=== PATIENT | female | born 1970 | race Caucasian/White ===

== ENCOUNTER 2024-06-09 10:31 | Emergency (ER) | payer BC, SELFPAY ==
--- NOTE | 2024-06-09 11:54 | ED.GENMED ---
History of Present Illness
General
Chief Complaint: Vaginal Bleeding
Source: patient
Exam Limitations: none
Time Seen by Provider: 06/09/24 11:00
Nursing documentation reviewed up to this point in time: agreed with
History of Present Illness
History of Present Illness:
Patient presents to ED secondary to blood with urination, as well as passage of small blood clots since last night. Patient denies fever or chills. Denies abdominal pain. Denies difficulty with urination. Denies trauma. Denies back pain.
Patient states that during routine health check in October 2023, her urine test microscopically had revealed small blood. When it was rechecked in May, it was still present. Denies previous history of similar symptoms. Denies recent change in
medications or diet. Denies dizziness. Denies shortness of breath. Denies weakness. Denies family history of kidney stones. Denies any urinary symptoms, i.e. urinary frequency/dysuria/urgency. Patient's last menstrual cycle was 2 years ago, as
patient is currently postmenopausal. Patient reports having received normal '[employer] exam' less than 1 year ago.
Review of Systems
Review of Systems
Allergies reviewed?: Yes
All Other Systems: ROS reviewed and negative except as documented in HPI and ROS
Constitutional: Reports no symptoms; Denies fever
Respiratory: Denies trouble breathing
Cardiac: Reports no symptoms; Denies palpitations
ABD/GI: Reports no symptoms
: Reports bleeding
Musculoskeletal: Reports no symptoms; Denies back pain
Skin: Reports no symptoms
Neurological: Reports no symptoms; Denies dizzy or weakness
Phy Exam
Physical Exam
Physical Exam:
Physical Exam
General: no apparent distress, not acutely ill. afebrile
Head: nc/at. eomi
Neck: supple. normal range of motion.
Abdomen: normal bowel sounds. not tender.
Neuro: alert and oriented. no focal neurological deficits
Skin: no rash
Psychiatric: well kept. interactive and cooperative
Extremities: no edema. no calf tenderness.
Course
Orders/Labs/Results
Orders:
Orders
06/09/24 11:21
Test Result ONCE
06/09/24 11:22
, Urine Qualitative Screen [HCG, Urine Qualitative Screen] Urgent
Date Specimen was Collected: 06/09/24
Time Specimen was Collected: 11:22
Urinalysis Reflex To Culture Urgent
Date Specimen was Collected: 06/09/24
Time Specimen was Collected: 11:22
06/09/24 13:03
US Pelvis W Transvag Combined Urgent
Comment:
Reason For Exam: vaginal bleeding
Vital Signs
Initial and Last Documented VS:
Initial Vital Signs
Temp Pulse Resp Pulse Ox
99.0 F 100 16 98
06/09/24 10:43 06/09/24 10:43 06/09/24 10:43 06/09/24 10:43
Last Documented Vital Signs
Temp Pulse Resp BP Pulse Ox
99.0 F 98 16 128/85 98
06/09/24 12:50 06/09/24 12:50 06/09/24 10:43 06/09/24 12:50 06/09/24 12:50
MDM/Problems Addressed
MDM/Problems Addressed:
Urinalysis reviewed: No blood noted. As such, likelihood of small blood clots noted, may be [employer] in origin. Pelvic ultrasound ordered.
Pelvic ultrasound report reviewed and discussed with patient and her spouse. Advised to follow-up with [employer] physician for further evaluation and treatment. However, with significant worsening bleeding and/or symptoms, i.e.
dizziness/weakness/shortness of breath, advised to return to ED for reevaluation. Patient and spouse expressed understanding, at time of discharge.
*Critical Care Note
Total Time (30-74mins, 75-104mins- exclusive of procedures): Not Applicable
ED Attending Note
-
Portions of this chart may have been created with voice recognition software.� Occasional wrong word or��sound alike� substitutions may have occurred due to the inherent limitations of voice recognition software.
Discharge Plan
Departure
Patient Disposition: Home (Routine Discharge)
Date of Disposition: 06/09/24
Time of Disposition: 14:56
Patient with high blood pressure during this ER visit?: Yes
Condition: Good
Discharge Problem:
Endometrial cyst
Referrals:
UNKNOWN - PT DOES,NOT KNOW [Family Provider] -
Activity Restrictions/Additional Instructions:
As discussed, please follow-up with [employer] physician for further evaluation and treatment. Please return to ED with worsening symptoms, i.e. excessive bleeding, dizziness, shortness of breath, weakness.
Interventions
Interventions:
*Risk Screen - Suicide Last Done: 06/09/24 11:26
*Neglect/Abuse Screening Last Done: 06/09/24 11:26
*Nursing Disposition Last Done: 06/09/24 15:29
ED-Female Genitourinary Assessment Last Done: 06/09/24 11:26
Discharge Date and Time
Discharge Date/Time: 06/09/24 15:30
Print Language: GREEK
[2024-06-09 12:00] LABS: HCG, Urine Qualitative Screen Negative
[2024-06-09 12:41] LABS: Urine Albumin Negative (Neg - Trace); Urine Bilirubin Negative (Negative); Urine Character Clear (Clear); Urine Color Yellow; Urine Glucose Negative (Negative); Urine Ketone Negative (Negative); Urine Leukocyte Negative (Negative); Urine Nitrite Negative (Negative); Urine Occult Blood Negative (Negative); Urine Urobilinogen Negative (Neg - 1+)
[2024-06-09 12:50] VITALS: BP 128/85
== END 2024-06-09 15:30 | disposition home or self-care (01) ==
LOC: EMR 10:31
PROVIDERS: EMERGENCY PHYSICIAN Emergency Medicine
DX: N85.8 Other specified noninflammatory disorders of uterus (principal); R03.0 Elevated blood-pressure reading, without diagnosis of hypertension
CPT/HCPCS: 99284; 76830; 76856; 81003; 81025